=== PATIENT | male | born 1995 | race Caucasian/White ===

== ENCOUNTER 2018-11-24 15:03 | Emergency (ER) | payer SELFPAY ==
[~2018-11-24] VITALS: Ht 172.7 cm; Wt 73.0 kg
[2018-11-24] MEDS ORDERED: HYDROmorphone 1 MG/ML, 1ML INJ IM ONE (15:30)
[2018-11-24] MEDS ORDERED: MAALOX/HYOSCYAMINE/LIDOCAINE 45 ML BTL PO ONE (15:30)
[2018-11-24] MEDS ORDERED: PANT20TA2 PO (15:31)
[2018-11-24] MEDS ORDERED: OMEP-110 PO (15:31)
--- NOTE | 2018-11-24 15:31 | NUR ---
FEVER/DIARRHEA X 4 DAYS, SEEN HERE YESTERDAY FOR SAME, TOLD HE HAD AN UPPER GI BLEED, D/C'D WITH PROTONIX AND ZOFRAN. PT STATES NOW HE'S HAVING "BURNING SENSATION" WITH FLUID INTAKE. PER TRIAGE NOTE
[2018-11-24] MEDS ORDERED: MAALOX/HYOSCYAMINE/LIDOCAINE 45 ML BTL ONE (15:38)
--- NOTE | 2018-11-24 15:40 | NUR ---
given med pt is waiting for lab result
[2018-11-24 15:49] LABS: BASOPHILS % (AUTO) 0 % (0-1); EOSINOPHILS % (AUTO) 1 % (1-7); LYMPHOCYTES % (AUTO) 19 % (22-44); MD NO; MEAN CORPUSCULAR HEMOGLOBIN 29.5 pg (27.5-34.5); MEAN CORPUSCULAR HGB CONC 34.4 g/dL (33.2-36.2); MEAN CORPUSCULAR VOLUME 85.8 fL (81-97); MEAN PLATELET VOLUME 6.9 fL (7.4-10.4); MONOCYTES # (AUTO) 0.74 x10^3/uL (0.2-0.8); MONOCYTES % (AUTO) 9 % (2-9); NEUTROPHILS # (AUTO) 6.07 x10^3/uL (1.8-6.8); NEUTROPHILS % (AUTO) 71 % (42-75); PLATELET COUNT 230 x10^3/uL (130-400); RED BLOOD COUNT 5.34 x10^6/uL (4.38-5.82); RED CELL DISTRIBUTION WIDTH 12.4 % (9.4-14.8)
[2018-11-24 15:59] LABS: ALANINE AMINOTRANSFERASE 37 U/L (12-78); ALBUMIN 3.6 g/dL (3.4-5.0); ANION GAP 7 mmol/L (5-15); CALCIUM 8.5 mg/dL (8.5-10.1); CHLORIDE 108 mmol/L (98-107); CREATININE 0.86 mg/dL (0.7-1.3)
[2018-11-24 16:02] LABS: ALKALINE PHOSPHATASE 69 U/L (45-117); BILIRUBIN,TOTAL 0.5 mg/dL (0.2-1.0); TOTAL PROTEIN 7.5 g/dL (6.4-8.2)
--- NOTE | 2018-11-24 16:06 | NUR ---
page GI then dc home
--- NOTE | 2018-11-24 16:20 | NUR ---
pt is waiting for update
[2018-11-24 16:57] VITALS: BP 132/76
--- NOTE | 2018-11-24 16:57 | NUR ---
given dc instruction with referral gi follow up pt understood
== END 2018-11-24 16:59 | disposition home or self-care (01) ==
LOC: ED 15:26
DX: K92.1 Melena (principal); R10.13 Epigastric pain
CPT/HCPCS: 36415; 71045; 80053; 83690; 85025; 93005; 99284